=== PATIENT | female | born 1965 | race Caucasian/White ===

== ENCOUNTER 2021-01-17 10:48 | Day surgery (SDC) | payer BC ==
[~2021-01-17] VITALS: Ht 170.2 cm; Wt 88.0 kg
[2021-01-17] VITALS (9 sets, daily range): BP systolic 129–169; BP diastolic 88–104
[2021-01-17] MEDS ORDERED: normal saline 1,000 ML IV SCH (11:05)
[2021-01-17] MEDS ORDERED: nitroGLYCERIN 0.4mg SUBLingual tab SL PRN ×2 (11:05→13:55)
[2021-01-17] MEDS ORDERED: diphenhydrAMINE 25mg capsule PO PRN (11:05)
[2021-01-17] MEDS ORDERED: LORazepam 0.5 MG tablet PO PRN (11:05)
[2021-01-17] MEDS ORDERED: OMEP40CA13 PO (11:15)
[2021-01-17] MEDS ORDERED: VALS40TA11 PO (11:15)
[2021-01-17] MEDS ORDERED: LEVO125T8 PO (11:15)
[2021-01-17] MEDS ORDERED: LOVA20TA2 PO (11:15)
[2021-01-17 11:44] LABS: TROPONIN I < 0.04 NG/ML (0.0-0.05)
[2021-01-17] MEDS ORDERED: POTASSIUM (11:47)
[2021-01-17] MEDS ORDERED: ASPI-1053 PO (11:47)
[2021-01-17] MEDS ORDERED: CALCIUM (11:47)
[2021-01-17] MEDS ORDERED: midazolam 2 mg/2 ml injection ONE ×2 (12:15→12:55)
[2021-01-17] MEDS ORDERED: LIDOcaine 1% (10mg/ml)w/preservative injection 20ml MDV ONE (12:16)
[2021-01-17] MEDS ORDERED: iohexol 350MG/ML 100ml bottle IV ONE (12:16)
[2021-01-17] MEDS ORDERED: iohexol 350 MG/ML 50ML vial IV ONE (12:16)
[2021-01-17] MEDS ORDERED: fentaNYL/PF 50MCG/1 ML 2ML syringe ONE (12:16)
[2021-01-17] MEDS ORDERED: OXAZEpam 15mg capsule PO PRN (13:55)
[2021-01-17] MEDS ORDERED: HYDROcodone/acetaminophen 10/325mg tab PO PRN (13:55)
[2021-01-17] MEDS ORDERED: ondansetron/PF 4mg/2ml inj IV PRN (13:55)
[2021-01-17] MEDS ORDERED: normal saline 1000ml 1,000 ML IV SCH (13:55)
[2021-01-17] MEDS ORDERED: proCHLORperazine 10 MG/2 ml inj IV PRN (13:55)
[2021-01-17] MEDS ORDERED: HYDROcodone/acetaminophen 5mg/325mg tablet PO PRN (13:55)
--- NOTE | 2021-01-17 17:15 | NUR ---
Dressing to right groin CDI, no bleeding or hematoma noted. Started sitting patient up.
--- NOTE | 2021-01-17 17:40 | NUR ---
Dressing remains CDI, no bleeding or hematoma. Patient sitting up higher in bed. Will continue to monitor.
== END 2021-01-17 18:05 | disposition home or self-care (01) ==
LOC: SSTAY O 10:48
PROVIDERS: ATTEND Internal Medicine Cardiovascular Disease
DX: R94.39 Abnormal result of other cardiovascular function study (principal); R07.89 Other chest pain; R06.09 Other forms of dyspnea; I25.10 Atherosclerotic heart disease of native coronary artery without angina pectoris; I10 Essential (primary) hypertension; E78.5 Hyperlipidemia, unspecified; M19.90 Unspecified osteoarthritis, unspecified site; Z90.710 Acquired absence of both cervix and uterus; Z98.890 Other specified postprocedural states; Z87.891 Personal history of nicotine dependence; Z79.899 Other long term (current) drug therapy; Z88.1 Allergy status to other antibiotic agents; Z88.8 Allergy status to other drugs, medicaments and biological substances
CPT/HCPCS: 36415; 83880; 84484; 93458; 99152; C1760; C1769; J1644; J2001; J2250; J3010; J7030; Q0163; Q9967; 99153; A4620